=== PATIENT | male | born 1970 | race Caucasian/White ===

== ENCOUNTER → 2018-02-08 | Outpatient (CLI) | payer OTHER ==
[2018-02-08 12:08] LABS: HEMOGLOBIN 14.8 g/dl (13.5-17.5); MEAN CORPUSCULAR HEMOGLOBIN 32.9 pg (27.0-33.0); MEAN CORPUSCULAR HGB CONC 35.2 g/dl (32.0-36.5); MEAN CORPUSCULAR VOLUME 93.3 fl (80.0-96.0); PLATELET COUNT, AUTOMATED 297 10^3/uL (150-450); RED CELL DISTRIBUTION WIDTH 11.8 % (11.5-14.5); WHITE BLOOD COUNT 5.7 10^3/uL (4.0-10.0)
[2018-02-08 12:21] LABS: INR 0.98; PROTHROMBIN TIME 13.1 SECONDS (12.4-14.5)
[2018-02-08 12:28] LABS: ERYTHROCYTE SEDIMENTATION RATE 28 mm/hr (0-15)
[2018-02-08 12:32] LABS: ALBUMIN 3.8 GM/DL (3.2-5.2); ALBUMIN/GLOBULIN RATIO 1.09 (1.00-1.93); ALKALINE PHOSPHATASE 141 U/L (45-117); ALT/SGPT 29 U/L (12-78); ANION GAP 6 MEQ/L (8-16); AST/SGOT 22 U/L (7-37); BILIRUBIN,TOTAL 0.5 MG/DL (0.2-1.0); BLOOD UREA NITROGEN 11 MG/DL (7-18); CALCIUM LEVEL 9.1 MG/DL (8.5-10.1); CARBON DIOXIDE LEVEL 30 MEQ/L (21-32); CHLORIDE LEVEL 104 MEQ/L (98-107); CREATININE FOR GFR 0.68 MG/DL (0.70-1.30); GLOMERULAR FILTRATION RATE > 60.0 (>60); GLUCOSE, FASTING 109 MG/DL (70-100); POTASSIUM SERUM 4.2 MEQ/L (3.5-5.1); SODIUM LEVEL 140 MEQ/L (136-145); TOTAL PROTEIN 7.3 GM/DL (6.4-8.2)
== END ==
LOC: M ADMPAT 10:35
DX: M19.012 Primary osteoarthritis, left shoulder (principal); M19.011 Primary osteoarthritis, right shoulder
CPT/HCPCS: 71046

== ENCOUNTER 2018-03-07 08:09 | Inpatient (IN) | payer OTHER ==
[2018-03-07] MEDS: LR 1,000 ML IV ×4 (09:30→15:00)
[2018-03-07] MEDS ORDERED: LIDOCAINE 2% INJ 100 MG/5 ML SDV (FOR ANES.) As Ordered (09:45)
[2018-03-07] MEDS: ACETAMINOPHEN 500 MG TAB PO (09:45)
[2018-03-07] MEDS ORDERED: PROPOFOL 200 MG/20 ML VIAL As Ordered ×4 (09:45→13:26)
[2018-03-07] MEDS ORDERED: MIDAZOLAM INJ 2 MG/2 ML VIAL (J2250) As Ordered (09:45)
[2018-03-07] MEDS ORDERED: fentaNYL 100 MCG/2 ML INJECTION (J3010) As Ordered (09:46)
[2018-03-07] MEDS: VANCOMYCIN HCL 1,000 MG, VIAL MATE ADAPTER 1 EACH in D5W 250 ML IV ×2 (11:20→23:44)
[2018-03-07] MEDS: ceFAZolin 1GM INJ (J0690 PER 500MG) As Ordered (12:03)
[2018-03-07] MEDS ORDERED: dexameTHASONE 4 MG/ML 1ML VIAL (J1100) As Ordered (12:15)
[2018-03-07] MEDS ORDERED: ONDANSETRON 4MG/2ML VIAL (J2405) As Ordered (12:16)
[2018-03-07] MEDS: CLINDAMYCIN INJ 900MG/6ML VIAL As Ordered (12:49)
[2018-03-07] MEDS: EPINEPHrine INJ 1 MG/ML 1ML AMP As Ordered (12:49)
[2018-03-07] MEDS ORDERED: LABETALOL HCL 100 MG/20 ML VIAL As Ordered (13:42)
[2018-03-07] MEDS ORDERED: MORPHINE 1MG/ML IN 0.9% NACL 100ML IV BAG As Ordered (13:53)
[2018-03-07] MEDS ORDERED: FLEET ENEMA PR (15:00)
[2018-03-07] MEDS ORDERED: EPIDURAL/PCA KEYS XX (15:00)
[2018-03-07] MEDS ORDERED: ONDANSETRON 4MG/2ML VIAL (J2405) IV ×2 (15:00)
[2018-03-07] MEDS ORDERED: diphenhydrAMINE INJ 50MG/ML VIAL (J1200) IV (15:00)
[2018-03-07] MEDS ORDERED: NALBUPHINE HCL 10 MG/ML AMP (J2300) IV (15:00)
[2018-03-07] MEDS ORDERED: NALOXONE INJ 0.4 MG/1 ML VIAL (J2310) IV (15:00)
[2018-03-07] MEDS ORDERED: fentaNYL 100 MCG/2 ML INJECTION (J3010) IV (15:00)
[2018-03-07] MEDS: NS 1,000 ML IV (17:00)
[2018-03-07] MEDS ORDERED: IPRATROPIUM 0.5MG/ALBUTEROL 2.5MG INH SOL UD 3ML (DUONEB)(J7620) NEB (19:45)
[2018-03-07] MEDS: CARVedilol 12.5 MG TAB PO (21:07)
[2018-03-07] MEDS: ACETAMINOPHEN TAB 650MG DOSE (2X325MG) PO (23:51)
[2018-03-07] MEDS: ADVAIR HFA 230/21MCG INHALER INH (23:56)
[2018-03-08] MEDS: MORPHINE 1MG/ML IN 0.9% NACL 100ML IV BAG IV (03:05)
[2018-03-08 06:26] LABS: HEMATOCRIT 35.9 % (42.0-52.0); HEMOGLOBIN 12.5 g/dl (13.5-17.5); MEAN CORPUSCULAR HGB CONC 34.8 g/dl (32.0-36.5); MEAN CORPUSCULAR VOLUME 91.8 fl (80.0-96.0); PLATELET COUNT, AUTOMATED 256 10^3/uL (150-450); RED BLOOD COUNT 3.91 10^6/uL (4.30-6.10); RED CELL DISTRIBUTION WIDTH 11.7 % (11.5-14.5); WHITE BLOOD COUNT 8.5 10^3/uL (4.0-10.0)
[2018-03-08 06:36] LABS: INR 1.08; PROTHROMBIN TIME 14.2 SECONDS (12.4-14.5)
[2018-03-08 06:40] LABS: ANION GAP 8 MEQ/L (8-16); BLOOD UREA NITROGEN 9 MG/DL (7-18); CALCIUM LEVEL 8.6 MG/DL (8.5-10.1); CARBON DIOXIDE LEVEL 28 MEQ/L (21-32); CHLORIDE LEVEL 101 MEQ/L (98-107); CREATININE FOR GFR 0.61 MG/DL (0.70-1.30); GLOMERULAR FILTRATION RATE > 60.0 (>60); GLUCOSE, FASTING 117 MG/DL (70-100); SODIUM LEVEL 137 MEQ/L (136-145)
[2018-03-08] MEDS ORDERED: ONDANSETRON 4 MG TAB (S0181) PO (07:00)
[2018-03-08] MEDS: ADVAIR HFA 230/21MCG INHALER INH ×2 (07:04→21:00)
[2018-03-08] MEDS: PERCOCET 5MG/325MG TAB PO ×4 (07:33→20:06)
[2018-03-08] MEDS: MIRALAX *UNIT DOSE* 17GM PACKET PO (09:00)
[2018-03-08] MEDS: MOM 30ML SUSPENSION UDC PO (09:00)
[2018-03-08] MEDS: CLOPIDOGREL 75 MG TAB PO (09:09)
[2018-03-08] MEDS: OMEPRAZOLE 20 MG CAP PO (09:09)
[2018-03-08] MEDS: CARVedilol 12.5 MG TAB PO ×2 (09:10→23:47)
[2018-03-08] MEDS: SENOKOT S TAB PO ×2 (09:11→23:41)
[2018-03-08] MEDS: LOSARTAN 50 MG TAB PO (09:12)
[2018-03-08] MEDS: VANCOMYCIN HCL 1,000 MG, VIAL MATE ADAPTER 1 EACH in D5W 250 ML IV (11:34)
[2018-03-08] MEDS ORDERED: SLF 3 ML SYR IV (12:15)
[2018-03-08] MEDS: SLF 3 ML SYR IV ×2 (13:58→23:42)
[2018-03-09] MEDS: PERCOCET 5MG/325MG TAB PO ×4 (00:03→11:41)
[2018-03-09] MEDS: SLF 3 ML SYR IV (04:32)
[2018-03-09 05:58] LABS: HEMOGLOBIN 11.4 g/dl (13.5-17.5); MEAN CORPUSCULAR HEMOGLOBIN 32.8 pg (27.0-33.0); MEAN CORPUSCULAR HGB CONC 35.6 g/dl (32.0-36.5); PLATELET COUNT, AUTOMATED 204 10^3/uL (150-450); RED BLOOD COUNT 3.48 10^6/uL (4.30-6.10); RED CELL DISTRIBUTION WIDTH 11.8 % (11.5-14.5); WHITE BLOOD COUNT 8.3 10^3/uL (4.0-10.0)
[2018-03-09 06:12] LABS: INR 1.13; PROTHROMBIN TIME 14.6 SECONDS (12.4-14.5)
[2018-03-09 06:21] LABS: ANION GAP 8 MEQ/L (8-16); BLOOD UREA NITROGEN 8 MG/DL (7-18); CALCIUM LEVEL 8.1 MG/DL (8.5-10.1); CARBON DIOXIDE LEVEL 28 MEQ/L (21-32); CHLORIDE LEVEL 100 MEQ/L (98-107); CREATININE FOR GFR 0.64 MG/DL (0.70-1.30); GLOMERULAR FILTRATION RATE > 60.0 (>60); GLUCOSE, FASTING 114 MG/DL (70-100); MAGNESIUM LEVEL 1.5 MG/DL (1.8-2.4); POTASSIUM SERUM 3.5 MEQ/L (3.5-5.1); SODIUM LEVEL 136 MEQ/L (136-145)
[2018-03-09] MEDS: MAG SULF 1GM/100ML (MAG RUN) 1 GM in APPROPRIATE DILUENT 1 EA IV ×2 (06:59→08:07)
[2018-03-09] MEDS: CLOPIDOGREL 75 MG TAB PO (08:08)
[2018-03-09] MEDS: MOM 30ML SUSPENSION UDC PO (08:08)
[2018-03-09] MEDS: OMEPRAZOLE 20 MG CAP PO (08:08)
[2018-03-09] MEDS: LOSARTAN 50 MG TAB PO (08:09)
[2018-03-09] MEDS: CARVedilol 12.5 MG TAB PO (08:09)
[2018-03-09] MEDS: SENOKOT S TAB PO (08:09)
[2018-03-09] MEDS: MIRALAX *UNIT DOSE* 17GM PACKET PO (08:10)
[2018-03-09] MEDS: ADVAIR HFA 230/21MCG INHALER INH (10:11)
[2018-03-09] MEDS: MORPHINE 15 MG SA TAB PO (13:37)
== END 2018-03-09 13:50 | disposition home health service (06) | DRG 301 ==
LOC: M OR 08:09 → M PCU 15:43
PROC: 0SRB04Z Replacement of Left Hip Joint with Ceramic on Polyethylene Synthetic Substitute, Open Approach (ICD-10-PCS; principal; 2018-03-07 10:05)
DX: M16.12 Unilateral primary osteoarthritis, left hip (principal); I11.0 Hypertensive heart disease with heart failure; I42.0 Dilated cardiomyopathy; I50.22 Chronic systolic (congestive) heart failure; I27.20 Pulmonary hypertension, unspecified; J45.909 Unspecified asthma, uncomplicated; F41.9 Anxiety disorder, unspecified; Z79.891 Long term (current) use of opiate analgesic; E22.0 Acromegaly and pituitary gigantism; I25.10 Atherosclerotic heart disease of native coronary artery without angina pectoris; E78.5 Hyperlipidemia, unspecified; I44.7 Left bundle-branch block, unspecified; Z79.899 Other long term (current) drug therapy; Z95.5 Presence of coronary angioplasty implant and graft; Z86.711 Personal history of pulmonary embolism; Z79.82 Long term (current) use of aspirin; Z79.02 Long term (current) use of antithrombotics/antiplatelets; Z88.8 Allergy status to other drugs, medicaments and biological substances

== ENCOUNTER → 2018-03-31 | Outpatient (REF) | payer OTHER ==
[2018-03-31 16:19] LABS: BASO % 0.4 % (0.0-1.0); EOS # 0.2 10^3/uL (0.0-0.50); EOS % 3.6 % (0.0-3.0); HEMATOCRIT 38.1 % (42.0-52.0); HEMOGLOBIN 12.6 g/dl (13.5-17.5); IMMATURE GRANULOCYTE % 0.4 % (0-3.0); LYMPH # 1.1 10^3/uL (1.5-4.5); LYMPH % 20.6 % (24.0-44.0); MEAN CORPUSCULAR HEMOGLOBIN 31.6 pg (27.0-33.0); MEAN CORPUSCULAR HGB CONC 33.1 g/dl (32.0-36.5); MEAN CORPUSCULAR VOLUME 95.5 fl (80.0-96.0); MONO # 0.5 10^3/uL (0.0-0.8); MONO % 8.6 % (0.0-5.0); NEUTROPHILS # 3.6 10^3/uL (1.8-7.7); NEUTROPHILS % 66.4 % (36.0-66.0); PLATELET COUNT, AUTOMATED 450 10^3/uL (150-450); RED BLOOD COUNT 3.99 10^6/uL (4.30-6.10); RED CELL DISTRIBUTION WIDTH 12.7 % (11.5-14.5); WHITE BLOOD COUNT 5.3 10^3/uL (4.0-10.0)
[2018-03-31 16:45] LABS: C REACTIVE PROTEIN QUANTITATIV 1.39 MG/DL (0.00-0.30)
[2018-03-31 16:50] LABS: ERYTHROCYTE SEDIMENTATION RATE 59 mm/hr (0-15)
== END ==
LOC: M LABDRAW1 11:32
DX: T81.4XXD Infection following a procedure, subsequent encounter (principal); Y83.9 Surgical procedure, unspecified as the cause of abnormal reaction of the patient, or of later complication, without mention of misadventure at the time of the procedure
CPT/HCPCS: 86140

== ENCOUNTER → 2018-04-03 | Outpatient (REF) | payer OTHER ==
[2018-04-03 15:46] LABS: BASO % 0.4 % (0.0-1.0); EOS # 0.2 10^3/uL (0.0-0.50); EOS % 3.5 % (0.0-3.0); HEMATOCRIT 37.9 % (42.0-52.0); HEMOGLOBIN 12.5 g/dl (13.5-17.5); IMMATURE GRANULOCYTE % 0.4 % (0-3.0); LYMPH # 0.9 10^3/uL (1.5-4.5); LYMPH % 16.5 % (24.0-44.0); MEAN CORPUSCULAR HEMOGLOBIN 31.7 pg (27.0-33.0); MEAN CORPUSCULAR VOLUME 96.2 fl (80.0-96.0); MONO # 0.5 10^3/uL (0.0-0.8); MONO % 8.8 % (0.0-5.0); NEUTROPHILS # 3.9 10^3/uL (1.8-7.7); NEUTROPHILS % 70.4 % (36.0-66.0); PLATELET COUNT, AUTOMATED 354 10^3/uL (150-450); RED BLOOD COUNT 3.94 10^6/uL (4.30-6.10); RED CELL DISTRIBUTION WIDTH 13.4 % (11.5-14.5); WHITE BLOOD COUNT 5.5 10^3/uL (4.0-10.0)
[2018-04-03 16:08] LABS: C REACTIVE PROTEIN QUANTITATIV 1.59 MG/DL (0.00-0.30)
[2018-04-03 16:43] LABS: ERYTHROCYTE SEDIMENTATION RATE 54 mm/hr (0-15)
== END ==
LOC: M LABDRAW1 15:30
DX: T81.4XXD Infection following a procedure, subsequent encounter (principal); Y82.9 Unspecified medical devices associated with adverse incidents
CPT/HCPCS: 86140

== ENCOUNTER 2018-10-14 14:22 | Emergency (ER) | payer OTHER ==
[~2018-10-14] VITALS: Ht 185.4 cm; Wt 115.9 kg
[~2018-10-14 14:22] MED LIST: /MOXI40TA OR; ACET50TA PO; ALBU17IN INH; ALBUTEROL INH; ASPI1TAB PO; BABY81CH OR; BREO1INH; BRONCHAID PO; CELEBREX PO; CLOP75TA2 PO; CORE25TA PO; DOXYCYCLINE PO; FERR1TAB8; FOLI1TAB86 PO; IBUP400T OR; LASI20TA PO; LOSA50TA88; OMEP40CA2; PRIMATINE; TESS100C PO; TRAM200T23; TRAM50TA2; TRAM50TA2 OR; TRAM50TA2 PO; VENTAER IN; VITA100T2 PO; VITMTA PO; ZEST10TA4 PO
[2018-10-14] MEDS ORDERED: TRAM1CAP16 (14:34)
[2018-10-14] MEDS ORDERED: IRON65TA (14:34)
[2018-10-14] MEDS ORDERED: FURO20TA2 (14:34)
[2018-10-14] MEDS ORDERED: ATOR40TA75 PO (14:34)
[2018-10-14 16:02] LABS: BASO % 0.4 % (0.0-1.0); EOS # 0.2 10^3/uL (0.0-0.50); EOS % 3.4 % (0.0-3.0); HEMATOCRIT 47.5 % (42.0-52.0); HEMOGLOBIN 16.1 g/dl (13.5-17.5); LYMPH # 1.3 10^3/uL (1.5-4.5); LYMPH % 18.9 % (24.0-44.0); MEAN CORPUSCULAR HEMOGLOBIN 32.8 pg (27.0-33.0); MEAN CORPUSCULAR HGB CONC 33.9 g/dl (32.0-36.5); MEAN CORPUSCULAR VOLUME 96.7 fl (80.0-96.0); MONO # 0.7 10^3/uL (0.0-0.8); MONO % 9.7 % (0.0-5.0); NEUTROPHILS # 4.5 10^3/uL (1.8-7.7); NEUTROPHILS % 67.3 % (36.0-66.0); PLATELET COUNT, AUTOMATED 289 10^3/uL (150-450); RED BLOOD COUNT 4.91 10^6/uL (4.30-6.10); WHITE BLOOD COUNT 6.7 10^3/uL (4.0-10.0)
[2018-10-14 16:24] LABS: BLOOD UREA NITROGEN 9 MG/DL (7-18); C REACTIVE PROTEIN QUANTITATIV 0.46 MG/DL (0.00-0.30); CALCIUM LEVEL 8.7 MG/DL (8.5-10.1); CARBON DIOXIDE LEVEL 30 MEQ/L (21-32); CHLORIDE LEVEL 103 MEQ/L (98-107); CREATININE FOR GFR 0.77 MG/DL (0.70-1.30); GLOMERULAR FILTRATION RATE > 60.0 (>60); GLUCOSE, FASTING 111 MG/DL (70-100); POTASSIUM SERUM 4.2 MEQ/L (3.5-5.1); SODIUM LEVEL 138 MEQ/L (136-145)
[2018-10-14] MEDS ORDERED: ISOVUE-370 76% 100ML VIAL (Q9967) As Ordered ONE (16:29)
[2018-10-14 16:57] LABS: ERYTHROCYTE SEDIMENTATION RATE 6 mm/hr (0-15)
[2018-10-14 18:21] VITALS: BP 161/103
--- NOTE | 2018-10-15 07:02 | REP ---
CT ANGIOGRAM NECK: 10/14/2018. Clinical history: Right carotid region pain, rule out carotid dissection. Technique: The patient received a bolus of 75 mL Isovue 370 scanning from the base of the aortic arch to the skull base and [place] of [place]. Axial coronal and sagittal soft tissue windows with MIP and standard reformats in the two additional planes. 3-D surface rendering and curved reformats through the carotids are performed. Findings: Three vessels off the aortic arch are noted in the usual fashion. The left common carotid artery shows no stenosis or aneurysm. Its course to the bifurcation is unremarkable. There is no stenosis of the left internal carotid artery to the skull base and carotid siphon. External carotid artery is seen with some branches. The left subclavian artery courses upward and gives rise to a thin left vertebral artery. There is no stenosis or aneurysm. The right innominate artery proximally was unremarkable. However, then there is poor opacification of the distal innominate artery and takeoff of the right common carotid. There is extensive adjacent dense contrast at the jugular and subclavian vein confluence just adjacent to this vessel. There is no evidence of a flap or narrowing below this. The artery has normal caliber above the area of poor visualization so there is no post stenotic dilatation evident. The course of the common carotid artery and right internal carotid artery in the neck is normal and without aneurysm or flap. There are opacified vertebral arteries bilaterally to the skull base. Soft tissues in the neck show no pathologic sized adenopathy. There are symmetric normal. Submandibular and parotid glands. Spine shows some cervical spondylosis from C3-4 through C5-6 with anterior and posterior osteophytes. No destructive lesion or compression deformity. There is no supraclavicular adenopathy or mass. Impression: 1. There is loss of contrast and visualization of the distal innominate and proximal right common carotid artery at the base of the neck immediately adjacent to the confluence of the left subclavian and jugular veins. Those vessels are filled with dense IV contrast with extensive spray artifact and this appearance could be artifact from that contrast or true vascular lesion within the vessel. Given this location and the fact that the patient has equal symmetric pulses (according to my discussion with the examining provider), I would more favor an imaging artifact for this finding but cannot completely exclude a true vascular lesion. The remainder of the right common carotid artery to the skull base and carotid siphon, the left common carotid system and vertebral systems were all unremarkable. 2. No evidence of adenopathy or mass in the neck. 3. Per my phone discussion with the examining PA at the time of this dictation, neurology consultation was recommended. Does not currently have any neurologic symptoms. I would recommend an MR angiogram of the neck to satisfy this question. Unfortunately, this cannot be done for approximately 24 hours after injection of IV contrast for this CT. Electronically Signed by Giovani Meyer MD 10/15/2018 09:51 A
--- NOTE | 2018-10-15 07:08 | REP ---
CT ANGIOGRAM OF THE BRAIN: 10/14/2018. Clinical history: Right carotid region pain, rule out dissection. Technique: Bolus of 75 ml Isovue 370 scanning through the brain with our CT angiogram technique. A noncontrast head CT prior to this study was negative for bleed or acute infarct. Bilateral internal carotid arteries from the skull base to the carotid siphons were symmetric and intact. Within the carotid siphons and supraclinoid regions, they are unremarkable. There is no stenosis, aneurysm or dissection. The A1 and M1 segments, A2 and the M2/M3 segments were all symmetric and normal. There is a slightly right dominant vertebral artery contribution of the basilar artery. No definite basilar artery stenosis or aneurysm. Posterior cerebral arteries were grossly unremarkable. Impression: 1. No CT angiogram evidence of aneurysm, dissection, stenosis, occlusion or other acute finding for the intracranial arterial vasculature. Electronically Signed by Giovani Meyer MD 10/15/2018 09:51 A
--- NOTE | 2018-10-15 08:12 | REP ---
CT BRAIN WITHOUT CONTRAST: 10/14/2018. Clinical history: Neck pain. Concern for carotid dissection. Pre CT angiogram head and neck examination. Comparison: MRI brain 02/08/2005. Findings: Soft-tissue and bone windows are reviewed for each slice level. Lateral ventricles are midline symmetric and without abnormal dilatation. Third and fourth ventricles are also unremarkable. Basal ganglia symmetric and normal. Marte white junction differentiation well maintained. I see no significant white matter hypodensity in either hemisphere. Cortical stripe is preserved. There is no vascular territory infarct, intracranial hemorrhage, mass, mass effect or edema. No extra-axial fluid collection. Brainstem and cerebellum are grossly intact. Basal cisterns are intact. Mastoids show symmetric aeration without opacification. Asymmetrically larger right than left jugular foramen, a common anatomic variation. There is a small cystic mass in the pituitary fossa, 15 x 16 mm. This is identical in size of the 2004 MRI. There is no subarachnoid hemorrhage. The frontal, sphenoid, maxillary and ethmoid sinuses were clear. Skull base and calvarium show no fracture or focal lesion. Impression: 1. No intracranial hemorrhage, acute infarct, edema or mass. 2. 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 This is a benign stable finding. 3. The paranasal sinuses, mastoids, skull base and calvarium without acute finding. Electronically Signed by Giovani Meyer MD 10/15/2018 09:56 A
--- NOTE | 2018-10-15 10:29 | ED PDOC ---
Post-Departure Follow-Up dr chaudhry faxed ct head and cta neck for fu. pt did not want ed mra but outpt m ra. per manuel parry pt aware of risks post d/c. chose outpt work up. ben smith Maja MD Oct 15, 2018 10:29
== END 2018-10-14 18:44 | disposition home or self-care (01) ==
LOC: M ED 14:22
DX: M54.2 Cervicalgia (principal); R93.89 Abnormal findings on diagnostic imaging of other specified body structures; I11.9 Hypertensive heart disease without heart failure; I25.10 Atherosclerotic heart disease of native coronary artery without angina pectoris; I25.2 Old myocardial infarction; J45.909 Unspecified asthma, uncomplicated; K44.9 Diaphragmatic hernia without obstruction or gangrene; Z86.711 Personal history of pulmonary embolism; E23.6 Other disorders of pituitary gland; Z95.5 Presence of coronary angioplasty implant and graft; Z86.14 Personal history of Methicillin resistant Staphylococcus aureus infection
CPT/HCPCS: 36415; 70450; 70496; 70498; 80048; 85025; 85652; 86140; 99284; Q9967

== ENCOUNTER → 2019-01-05 | Outpatient (CLI) | payer OTHER ==
[~2019-01-05] MED LIST changes: -/MOXI40TA OR; -ACET50TA PO; -ASPI1TAB PO; +ASPI81TA26 PO; +ATOR40TA75 PO; +AVEL1TAB2 OR; +FURO20TA2; +IRON65TA; +MAPA500T17 PO; +PROHANCE 279.3MG/ML 15ML VIAL (A9576) As Ordered ONE; +TRAM1CAP16
--- NOTE | 2019-01-05 18:56 | REP ---
MR angiography of the carotids without and with IV gadolinium: History: Neck pain. Rule out carotid dissection or lesion in vessel. Gadolinium enhancement dose: 25 ml of intravenous ProHance. Pre and post gadolinium enhanced MR angiography is acquired. Maximum intensity projection images are displayed. MR angiographic findings: The visualized aortic arch is unremarkable. Great vessel origins are widely patent. Vertebral arteries are patent and codominant. The common carotid arteries are unremarkable bilaterally. Carotid bifurcations are clear. No significant plaquing is seen. No evidence of stenosis is noted. The internal carotid arteries are patent bilaterally to the [place] without evidence of stenosis or occlusion to suggest a carotid dissection. The left vertebral artery is a little smaller than the right and appears to be blind ending. The right distal vertebral artery feeds the basilar artery. Impression: Unremarkable carotid MR angiography. No evidence to suggest dissection. A right dominant vertebral system. Electronically Signed by Chente Iqbal MD 01/05/2019 08:15 P
== END ==
LOC: M RAD 15:52
PROVIDERS: ATTEND Family Medicine
DX: M54.2 Cervicalgia (principal)
CPT/HCPCS: 70549; A9576

== ENCOUNTER → 2021-04-21 | Outpatient (CLI) | payer OTHER ==
[~2021-04-21] MED LIST changes: +ISOVUE-300 61% 50ML VIAL As Ordered ONE; +LIDOCAINE 1% MDV 20ML VIAL As Ordered ONE; -OMEP40CA2; +OMEP40CA4; -PROHANCE 279.3MG/ML 15ML VIAL (A9576) As Ordered ONE; +TRIAMCINOLONE ACETONIDE SUSP 40 MG/ML VIAL (J3301) As Ordered ONE
--- NOTE | 2021-04-21 16:39 | REP ---
INDICATION: OA OF RT HIP. COMPARISON: None. TECHNIQUE: The procedure was performed under the direct supervision of Dr. Iqbal. The benefits and risks including but not limited to pain infection and bleeding and anaphylaxis were explained to the patient and informed consent was obtained. The right femoral neck was localized using fluoroscopic guidance. The skin was prepped and draped in a sterile fashion. 1% lidocaine was used as a local anesthetic. Using fluoroscopic guidance, and last image hold technology, a 22-gauge spinal needle was inserted and advanced to the femoral neck. 0.5 ml of Isovue-300 was injected to verify placement. Six ml of a solution containing 5 ml of 1% Xylocaine and 1 mL of Kenalog 40 mg was injected. The needle was then removed. The patient tolerated the procedure well and there were no immediate complications. Less than 6 seconds of fluoro time was utilized for this procedure. FINDINGS: None IMPRESSION: Fluoro guidance for right hip injection. <Electronically signed by Kike Bassett > 04/21/21 1622 <Electronically signed by Mansoor Iqbal > 04/21/21 [id number]
== END ==
LOC: M RADPRO 10:34
PROVIDERS: ATTEND Orthopaedic Surgery
DX: M16.11 Unilateral primary osteoarthritis, right hip (principal)
CPT/HCPCS: 20610; 77002; J3301; Q9967

== ENCOUNTER → 2021-05-11 | Outpatient (CLI) | payer OTHER ==
[~2021-05-11] MED LIST changes: +ALBU8.5H; +CARV25TA; +D 101000 PO; +ECOT81TA5 PO; +FERR325T19; +FLUT1INH3 INH; +FLUTISP INH; -ISOVUE-300 61% 50ML VIAL As Ordered ONE; -LIDOCAINE 1% MDV 20ML VIAL As Ordered ONE; +NITR0.4S14; +OMEP-221; -TRIAMCINOLONE ACETONIDE SUSP 40 MG/ML VIAL (J3301) As Ordered ONE
== END ==
LOC: M LABSMTC 09:34
PROVIDERS: ATTEND Anesthesiology
DX: Z01.818 Encounter for other preprocedural examination (principal); Z11.52 Encounter for screening for COVID-19

== ENCOUNTER 2021-05-15 05:46 | Day surgery (SDC) | payer OTHER ==
[~2021-05-15] VITALS: Ht 188 cm; Wt 111.0 kg
[2021-05-15] MEDS ORDERED: ceFAZolin SOD 2 GM in IV 1 EA IV ONE (06:00)
[2021-05-15] MEDS ORDERED: LR 1,000 ML IV ONE (06:00)
[2021-05-15] MEDS ORDERED: BUPIVACAINE/EPIN 0.25% 30 ML VIAL As Ordered ONE (07:10)
[2021-05-15] MEDS ORDERED: propofoL 200 MG/20 ML VIAL As Ordered ONE (07:58)
[2021-05-15] MEDS ORDERED: SUGAMMADEX SODIUM 500 MG/5 ML VIAL (BRIDION) As Ordered ONE (07:58)
[2021-05-15] MEDS ORDERED: ETOMIDATE INJ 20MG/10ML VIAL As Ordered ONE (07:58)
[2021-05-15] MEDS ORDERED: LIDOCAINE 2% 100MG/5ML SDV (FOR ANES.) As Ordered ONE (07:58)
[2021-05-15] MEDS ORDERED: ROCURONIUM BROMIDE 50 MG/5 ML VIAL As Ordered ONE (07:58)
[2021-05-15] MEDS ORDERED: MIDAZOLAM INJ 2MG/2ML VIAL (J2250 PER 1MG) As Ordered ONE (07:58)
[2021-05-15] MEDS ORDERED: METOCLOPRAMIDE INJ 10MG/2ML VIAL (J2765 PER 1) As Ordered ONE (07:58)
[2021-05-15] MEDS ORDERED: fentaNYL 250 MCG/5 ML INJECTION (J3010) As Ordered ONE (07:58)
[2021-05-15] MEDS ORDERED: dexameTHASONE 4 MG/ML 1ML VIAL (J1100 PER 1MG) As Ordered ONE (07:58)
[2021-05-15] MEDS ORDERED: ONDANSETRON 4MG/2ML VIAL As Ordered ONE (07:58)
[2021-05-15] MEDS ORDERED: VASOPRESSIN INJ 20 UNITS/ML VIAL As Ordered ONE (07:58)
[2021-05-15] MEDS ORDERED: ACETAMINOPHEN 1000MG 100ML IV BTL (OFIRMEV) (J0131 PER 10MG) As Ordered ONE (08:19)
[2021-05-15] MEDS ORDERED: KETOROLAC 60MG 2ML VIAL As Ordered ONE (08:46)
--- NOTE | 2021-05-15 09:28 | RO ---
OPERATIVE NOTE DATE OF OPERATION: 05/15/2021 PREOPERATIVE DIAGNOSIS: Left inguinal hernia. POSTOPERATIVE DIAGNOSIS: Left inguinal hernia. PROCEDURE: Robotic-assisted laparoscopic left inguinal hernia repair with ProGrip mesh. SURGEON: Magnus Cook Jr, MD [employer] PROFESSIONAL: Danyell Johnson (provided instrument exchange, trocar placement, abdominal wall closure, mesh placement). ANESTHESIA: General endotracheal anesthesia. EBL: Minimal. FLUIDS: Crystalloid. DISPOSITION: Patient was taken to the recovery room awake, alert, hemodynamically stable. DESCRIPTION OF PROCEDURE: The patient was taken to the operating room, was given general anesthesia, after adequate anesthesia and preoperative antibiotics were given, the patient was prepped and draped in usual sterile fashion. An epigastric incision was made with skin knife. Blunt dissection was carried down to fascia. Fascia was entered with Veress needle, insufflated to 15 mm pressure. Dilating 8 mm trocar was placed and under direct visualization two lateral 8 mm were placed. The patient was placed in steep Trendelenburg and robot was docked. Monopolar cut scissors were used to take down the peritoneum on the left-hand side mobilizing the indirect inguinal hernia out of the inguinal canal. Once this was mobilized adequately, it was very redundant sac even going across the vessels toward the epigastrics a little bit more than usual, but in general after slow but meticulous dissection I was able to mobilize this quite nicely and off Juarez's. A ProGrip mesh was cut to the appropriate size, placed in preperitoneal space and pressed into position. A 3-0 V-Loc was used to close the peritoneum and all incisions were closed with 4-0 Vicryl and Steri-Strips. Dry, sterile dressings were applied. The patient was awakened, extubated and brought to recovery room awake, alert and hemodynamically stable. Sponge and needle counts correct x2.
[2021-05-15] MEDS ORDERED: fentaNYL 100 MCG/2 ML INJECTION (J3010) IV PRN (09:30)
[2021-05-15] MEDS ORDERED: HYDROMORPHONE HCL 0.5 MG/ 0.5 ML SYRINGE (J1170 PER 1) IV PRN (09:30)
[2021-05-15] MEDS ORDERED: METOCLOPRAMIDE INJ 10MG/2ML VIAL (J2765 PER 1) IV PRN (09:30)
[2021-05-15] MEDS ORDERED: ONDANSETRON 4MG/2ML VIAL IV PRN (09:30)
[2021-05-15] MEDS ORDERED: LR 1,000 ML IV SCH (09:30)
[2021-05-15] MEDS ORDERED: oxyCODONE 5MG TAB PO PRN (09:30)
[2021-05-15] MEDS ORDERED: PERCOCET 5MG/325MG TAB PO PRN ×2 (09:50)
[2021-05-15] MEDS ORDERED: NS 1,000 ML IV SCH (09:50)
[2021-05-15 11:23] VITALS: BP 150/85
== END 2021-05-15 11:26 | disposition home or self-care (01) ==
LOC: M SDC 05:46
PROVIDERS: ATTEND Surgery
DX: K40.90 Unilateral inguinal hernia, without obstruction or gangrene, not specified as recurrent (principal); I25.10 Atherosclerotic heart disease of native coronary artery without angina pectoris; I11.0 Hypertensive heart disease with heart failure; I44.7 Left bundle-branch block, unspecified; E78.5 Hyperlipidemia, unspecified; I42.0 Dilated cardiomyopathy; I50.22 Chronic systolic (congestive) heart failure; E22.0 Acromegaly and pituitary gigantism; J45.20 Mild intermittent asthma, uncomplicated; F32.9 Major depressive disorder, single episode, unspecified; F41.9 Anxiety disorder, unspecified; Z79.899 Other long term (current) drug therapy; Z79.2 Long term (current) use of antibiotics; Z79.82 Long term (current) use of aspirin; Z79.02 Long term (current) use of antithrombotics/antiplatelets; Z88.8 Allergy status to other drugs, medicaments and biological substances; Z87.891 Personal history of nicotine dependence; Z86.711 Personal history of pulmonary embolism; Z95.5 Presence of coronary angioplasty implant and graft
CPT/HCPCS: 49650; C1781; J0131; J0690; J1100; J1885; J2250; J2405; J2765; J3010; S2900

== ENCOUNTER → 2021-11-11 | Outpatient (CLI) | payer OTHER ==
[~2021-11-11] MED LIST changes: +LOSA50TA28; -LOSA50TA88; -OMEP-221; +OMEP40CA5
== END ==
LOC: M CARPUL 13:33
PROVIDERS: ATTEND Internal Medicine Cardiovascular Disease
DX: I50.22 Chronic systolic (congestive) heart failure (principal)

== ENCOUNTER → 2022-01-20 | Outpatient (CLI) | payer OTHER ==
[~2022-01-20] MED LIST changes: -FERR325T19; +FERR325T19 PO; +HYDR-3713 PO; +LOSA50TA28 PO; -OMEP40CA5; +OMEP40CA5 PO
== END ==
LOC: M LABSMTC 09:51
PROVIDERS: ATTEND Anesthesiology
DX: Z01.818 Encounter for other preprocedural examination (principal); Z11.52 Encounter for screening for COVID-19

== ENCOUNTER 2022-01-25 06:02 | Inpatient (IN) | payer OTHER ==
[~2022-01-25] VITALS: Ht 188 cm; Wt 124.0 kg
[2022-01-25] VITALS (8 sets, daily range): BP systolic 120–127; BP diastolic 70–74
[2022-01-25] MEDS ORDERED: TRANEXAMIC ACID 100 MG/ML 10ML VIAL As Ordered ONE ×2 (07:09→08:02)
[2022-01-25] MEDS ORDERED: ceFAZolin 1GM VIAL (J0690 PER 500MG) As Ordered ONE (07:10)
[2022-01-25] MEDS ORDERED: EPINEPHrine INJ 1 MG/ML 1ML AMP As Ordered ONE (07:10)
[2022-01-25] MEDS ORDERED: propofoL 500 MG/50 ML VIAL As Ordered ONE ×3 (07:11→08:51)
[2022-01-25] MEDS ORDERED: LIDOCAINE 2% 100MG/5ML SDV (FOR ANES.) As Ordered ONE (07:11)
[2022-01-25] MEDS ORDERED: ceFAZolin SOD 2 GM in IV 1 EA IV ONE (07:15)
[2022-01-25] MEDS ORDERED: MIDAZOLAM INJ 2MG/2ML VIAL (J2250 PER 1MG) As Ordered ONE (07:17)
[2022-01-25] MEDS ORDERED: fentaNYL 100 MCG/2 ML INJECTION As Ordered ONE ×2 (07:17→09:55)
[2022-01-25] MEDS ORDERED: PHENYLephrine 500MCG 5ML (100MCG/ML) SYRINGE As Ordered ONE (08:50)
[2022-01-25] MEDS: fentaNYL 100 MCG/2 ML INJECTION IV PRN ×2 (09:56→10:04)
[2022-01-25] MEDS ORDERED: LR 1,000 ML IV SCH ×2 (10:00)
[2022-01-25] MEDS ORDERED: PERCOCET 5MG/325MG TAB PO PRN (10:00)
[2022-01-25] MEDS ORDERED: HYDROMORPHONE HCL 0.5 MG/ 0.5 ML SYRINGE (J1170 PER 1) IV PRN (10:00)
[2022-01-25] MEDS ORDERED: ACETAMINOPHEN TAB 650MG DOSE (2X325MG) PO PRN (10:00)
[2022-01-25] MEDS ORDERED: ONDANSETRON 4MG/2ML VIAL IV PRN ×2 (10:00)
[2022-01-25] MEDS ORDERED: traMADol 50 MG TAB PO PRN (10:00)
[2022-01-25] MEDS ORDERED: ACETAMINOPHEN *IV* 1,000 MG IV ONE ×2 (10:35)
[2022-01-25] MEDS ORDERED: LACTATED RINGER'S 500 ML IV ONE (10:35)
[2022-01-25] MEDS: oxyCODONE 5MG TAB PO PRN ×2 (11:47→12:33)
[2022-01-25] MEDS: MORPHINE 4 MG/ML 1ML VIAL/SYRINGE IV PRN ×2 (12:40→14:49)
[2022-01-25] MEDS: ceFAZolin SOD 1 GM in D5W MINI-BAG PLUS 50 ML IV SCH ×2 (16:05→23:05)
[2022-01-25] MEDS: PERCOCET 5MG/325MG TAB PO PRN (16:12)
[2022-01-25] MEDS: ceFAZolin SOD 2 GM in IV 1 EA IV SCH (16:40)
[2022-01-25] MEDS: MORPHINE 2 MG/ML 1ML VIAL IV PRN ×2 (18:17→21:04)
[2022-01-25] MEDS: ADVAIR HFA 230/21MCG INHALER INH SCH (19:31)
[2022-01-25] MEDS ORDERED: ATORVASTATIN 20 MG TAB PO SCH (21:00)
[2022-01-25] MEDS: DOCUSATE SODIUM 100MG CAPSULE PO SCH (21:04)
[2022-01-25] MEDS: CARVedilol 12.5 MG TAB PO SCH (21:06)
[2022-01-26] MEDS: ceFAZolin SOD 2 GM in IV 1 EA IV SCH (00:06)
[2022-01-26] MEDS: MORPHINE 2 MG/ML 1ML VIAL IV PRN ×2 (00:15→08:04)
[2022-01-26 02:00] VITALS: BP 134/83
[2022-01-26] MEDS: PERCOCET 5MG/325MG TAB PO PRN ×2 (02:49→10:43)
[2022-01-26 06:00] VITALS: BP 129/80
[2022-01-26 07:34] LABS: BASO % 0.1 % (0.0-1.0); EOS # 0.2 10^3/uL (0.0-0.5); EOS % 2.3 % (0.0-3.0); HEMATOCRIT 35.3 % (42.0-52.0); HEMOGLOBIN 12.4 g/dl (13.5-17.5); LYMPH # 1.1 10^3/uL (1.5-5.0); LYMPH % 15.2 % (24.0-44.0); MEAN CORPUSCULAR HEMOGLOBIN 33.3 pg (27.0-33.0); MEAN CORPUSCULAR HGB CONC 35.1 g/dl (32.0-36.5); MEAN CORPUSCULAR VOLUME 94.9 fl (80.0-96.0); MONO # 0.7 10^3/uL (0.0-0.8); MONO % 10.5 % (2.0-8.0); NEUTROPHILS % 71.6 % (36.0-66.0); PLATELET COUNT, AUTOMATED 197 10^3/uL (150-450); RED BLOOD COUNT 3.72 10^6/uL (4.30-6.10); WHITE BLOOD COUNT 6.9 10^3/uL (4.0-10.0)
[2022-01-26 07:48] LABS: INR 1.07; PROTHROMBIN TIME 14.3 SECONDS (12.7-14.5)
[2022-01-26 07:49] LABS: PARTIAL THROMBOPLASTIN TIME 34.1 SECONDS (25.9-37.0)
[2022-01-26 08:00] VITALS: BP 127/79
[2022-01-26] MEDS: ADVAIR HFA 230/21MCG INHALER INH SCH (08:02)
[2022-01-26 08:04] VITALS: BP 129/80
[2022-01-26 08:04] LABS: ALBUMIN 2.9 GM/DL (3.2-5.2); ALT/SGPT 58 U/L (12-78); BILIRUBIN,DIRECT 0.3 MG/DL (0.0-0.2); BILIRUBIN,TOTAL 0.8 MG/DL (0.2-1.0); BLOOD UREA NITROGEN 7 MG/DL (7-18); CALCIUM LEVEL 8.4 MG/DL (8.5-10.1); CARBON DIOXIDE LEVEL 29 MEQ/L (21-32); CHLORIDE LEVEL 103 MEQ/L (98-107); CREATININE FOR GFR 0.64 MG/DL (0.70-1.30); GLOMERULAR FILTRATION RATE > 60.0 (>56); GLUCOSE, FASTING 105 MG/DL (70-100); POTASSIUM SERUM 3.7 MEQ/L (3.5-5.1); SODIUM LEVEL 137 MEQ/L (136-145); TOTAL PROTEIN 5.6 GM/DL (6.4-8.2)
[2022-01-26] MEDS: DOCUSATE SODIUM 100MG CAPSULE PO SCH (08:04)
[2022-01-26] MEDS: CARVedilol 12.5 MG TAB PO SCH (08:04)
[2022-01-26] MEDS ORDERED: OMEPRAZOLE 20MG CAP PO SCH (09:00)
[2022-01-26] MEDS ORDERED: PERCOCET PO (09:07)
[2022-01-26] MEDS ORDERED: ELIQ2.5T PO (09:07)
[2022-01-26 10:00] VITALS: BP 126/79
[2022-01-26] MEDS ORDERED: APIXABAN 5 MG TAB (ELIQUIS) PO SCH (18:00)
[2022-01-26] MEDS ORDERED: APIXABAN 2.5 MG TAB (ELIQUIS) PO SCH (21:00)
== END 2022-01-26 13:45 | disposition home health service (06) | DRG 301 ==
LOC: M SDC 06:02 → M MS5PR 15:00
PROVIDERS: ADMIT Orthopaedic Surgery; ATTEND Orthopaedic Surgery
PROC: 0SR904Z Replacement of Right Hip Joint with Ceramic on Polyethylene Synthetic Substitute, Open Approach (ICD-10-PCS; principal; 2022-01-25 07:30)
DX: M16.11 Unilateral primary osteoarthritis, right hip (principal); I11.0 Hypertensive heart disease with heart failure; I42.0 Dilated cardiomyopathy; I50.22 Chronic systolic (congestive) heart failure; E78.5 Hyperlipidemia, unspecified; I25.10 Atherosclerotic heart disease of native coronary artery without angina pectoris; Z95.5 Presence of coronary angioplasty implant and graft; J45.909 Unspecified asthma, uncomplicated; Z86.711 Personal history of pulmonary embolism; Z79.82 Long term (current) use of aspirin; Z79.891 Long term (current) use of opiate analgesic; Z79.899 Other long term (current) drug therapy; Z88.8 Allergy status to other drugs, medicaments and biological substances; Z96.643 Presence of artificial hip joint, bilateral